=== PATIENT | female | born 1940 | race Caucasian/White ===

== ENCOUNTER 2016-08-06 19:57 | Emergency (ER) | payer MEDICARE, OTHER ==
[~2016-08-06] VITALS: Ht 160 cm; Wt 110.9 kg
[~2016-08-06 19:57] MED LIST: AMLO5TAB2 PO; ASPI-973 PO; CHOL5000 PO; CLOP75TA28 PO; HYDR12.5 PO; LOSA50TA37 PO; NITR0.4T6 SL; OMEG-38 PO; PANT40TA2 PO; SIMV20TA4 PO
[2016-08-06 20:00] VITALS: BP 156/90; PULSE 80; RESP 16; O2SAT 99
--- NOTE | 2016-08-06 21:03 | ED.REPORT ---
HPI-Head Prob / Injury Date of Service Aug 06, 2016 ED Provider: Juanito Dobbins MD 76 year old anticoagulated female with a history of CAD, DM, CHF, and HTN presents to the ER accompanied by her daughter complaining of status post ground level fall. She states that she was stepping off a curb and tripped, striking her head on the ground. Patient denies LOC, vomiting, headache, weakness/numbness/tingling, neck trauma, and any other significant injuries secondary to the fall. Nursing Notes Stated Complaint: FALL, HEAD INJURY Chief Complaint: Head, Face, Neck Trauma Nursing Notes Reviewed: Yes Allergies: Coded Allergies: Adhesives (Verified Allergy, Severe, RASH, 08/06/16) lisinopril (Verified Adverse Reaction, Mild, Cough, 08/06/16) Scheduled Amlodipine (Amlodipine) 5 Mg Tablet 5 MG PO PM Aspirin (Aspirin) 81 Mg Tablet 81 MG PO DAILY Cholecalciferol (Vitamin D3) (Vitamin D3) 5,000 Unit Capsule 5,000 UNIT PO DAILY Clopidogrel (Clopidogrel) 75 Mg Tablet 75 MG PO DAILY Hydrochlorothiazide (Hydrochlorothiazide) 12.5 Mg Capsule 25 MG PO DAILY Losartan Potassium (Losartan Potassium) 50 Mg Tablet 50 MG PO DAILY [place]-3/Dha/Epa/Fish Oil (Fish Oil 1,000 mg Softgel) 1 Each Capsule 1 EACH PO DAILY Pantoprazole DR (Protonix) 40 Mg Tablet.dr 40 MG PO DAILY Simvastatin (Simvastatin) 20 Mg Tablet 20 MG PO HS Scheduled PRN Nitroglycerin SL (Nitroglycerin SL) 0.4 Mg Tab.subl 0.4 MG SL Q5MIN PRN PRN For Chest Pain General Time Seen by Provider: 21:01 Chief Complaint Blunt head trauma Hx Obtained From: Patient Arrived By: Walk-in Onset Occurred: Just prior to arrival Symptom Duration: Since onset Caused by: Fall from (Ground level) Context: Occurred at: Home Location: : Forehead Quality: Painful Severity: Current: Moderate Severity: Maximum: Moderate Associated with: Denies: Loss of consciousness, Nausea, Vomiting, Weakness Pertinent Negative: Pt denies other symptoms Similar Sx Previous: No Risk-Head Prob / Injury )( IC Bleed Risk Strat Age (<1 yr or >60 yrs) Blood thinnersNo EtOH use RF Statements: Risk factors reviewed Nexus C-Spine Criteria No post midline tendernes, Not intoxicated, Normal level or alertness, No focal neuro deficits Kyle Coma Score > Age 5 Eye Opening: Open spontaneously (4) Verbal Response: Oriented (5) Motor Response: Obeys commands (6) [place] Coma Score: 15 Past Medical History Past Medical History Coronary disease, and STEMI September 2011, subsequent stent placed History of mild to moderate aortic stenosis Obstructive sleep apnea Most recent stress test was 3.14 and was negative, followed neg CP admit History of renal cancer, status post right nephrectomy Reports: Congestive heart failure, Coronary artery disease, Diabetes mellitus, GERD, Hyperlipidemia, Hypertension Past Surgical History Cardiac stent September 2011, Right knee arthroplasty Right nephrectomy for renal CA Right shoulder dislocation Partial hysterectomy Family History Noncontributory Smoking History Never Smoker Social History Alcohol Use: Denies alcohol use Drug Use: Denies drug use Other Social History: Local resident Ambulatory Status Independent Review of Systems GI: Denies: Nausea, Vomiting Musculoskeletal: Reports: Extremity pain (Left Hand), Denies: Back pain, Joint pain, Lumbar pain, Neck pain, Thoracic pain Neurologic: Denies: Dizziness, Focal weakness, Headache, Numbness, Slurred speech, Syncope, Weakness Complete sys rev & neg: except as marked. Physical Exam Initial Vital Signs Vital Signs (First) Date Time Temp Pulse Resp B/P Pulse Ox O2 Delivery O2 Flow Rate FiO2 08/06/16 20:00 36.3 80 16 156/90 99 Room Air Initial VS: Reviewed Respiratory: Breath sounds normal, Clear to auscultation, No respiratory distress Cardiovascular: Regular rate & rhythm, Heart sounds normal, Intact distal pulses Abdomen / GI: Soft, Non-tender, No guarding, No rebound, No distention Skin: Warm, Dry, No cyanosis Psychiatric: Mood/affect normal, Behavior normal, Normal thought content General/Constitutional: Awake, Alert, No acute distress, Well appearing, Well developed, Well nourished Head / Eyes: Normocephalic, PERRL, EOMI 5x7cm hematoma overlying forehead with some overlying abrasions. ENT: Airway patent, Gums/dentition NL Neck: Atraumatic, Supple, Full range of motion, No swelling, Non-tender, No midline vertebral tend, No masses, No tracheal deviation Neurologic: Oriented X3, Speech NL, No motor deficits, No sensory deficits, CN II - XII intact, Cerebellar NL Wrist / Hand: Neurologic intact, Vascular intact Ecchymosis involving entire dorsum of left 5th finger. Limited flexion and extension of left 5th finger. Interpretation & Diagnostics Interpretation & Diagnostics: X-Ray Interpretation Xray Interpretation: IMPRESSION: Moderately displaced small avulsion fracture of the dorsal base of the fifth middle phalanx. Dictated by: Jamil Alcantara M.D. on 08/06/2016 at 21:52 Approved by: Jamil Alcantara M.D. on 08/06/2016 at 21:54 Study Performed: PROCEDURE: X-RAY FINGERS, TWO VIEWS Interpretation / Wet Read by: Interpret - Radiologist Xray Interpretation: IMPRESSION: No acute bony injury of the pelvic ring or right hip. Dictated by: Jamil Alcantara M.D. on 08/06/2016 at 21:51 Approved by: Jamil Alcantara M.D. on 08/06/2016 at 21:52 X-Ray Ordered: Pelvis, Hip right Interpretation / Wet Read by: Interpret - Radiologist CT Head Interpretation CONCLUSION: Mild atrophy and periventricular white matter changes consistent with the patient's age. No hemorrhage or other specific acute intracranial abnormality demonstrated. Electronically signed by Gold Henning MD Study: Head CT no contrast Interpretation / Wet Read by: Interpret - Radiologist Procedures Splint Application - Fx Mgt Time: 22:14 Procedure Performed by: ED physician, Plastic Die Maker Apprentice Precise Anatomic Location: Left 5th finger Type of Immobilization: Aluminum-foam Definitive Fracture Care: Splint Post-Procedure / Complications: Cap refill normal, Post splint vascular nl, Post splint neuro nl, Condition improved, Tolerated procedure well, Patient stable Splint Post-Application Eval Extremity Condition: Cap refill < 2 sec, Distal sensation intact, Distal motor Intact, No compartment syndrome Re-Eval/Medical Decision Med Decision/Clinical Course Patient is a 76-year-old female on Plavix who presents to the emergency department after a ground-level fall. She is complaining of left pinky finger pain and forehead hematoma. She is afebrile stable vital signs and normal mentation. Examination as above. Imaging was obtained as below: X-Ray Right Hip/Pelvis IMPRESSION: No acute bony injury of the pelvic ring or right hip. X-Ray Left Fingers IMPRESSION: Moderately displaced small avulsion fracture of the dorsal base of the fifth middle phalanx. Patient was placed in finger splint. She declined pain medications. Complete head to toe examination demonstrated no other associated injuries. She has normal mentation. CT scan of the head demonstrated no acute intracranial process or hemorrhage. She is neurologically intact. I feel she is appropriate for discharge home. Follow up and return precautions were reviewed in detail with the patient as well as her family and they verbalized understanding and agreement with the plan. Source of Hx: Old records Re-Evaluation/Progress : Time of Eval: 22:20 Re-Evaluation/Progress Note: Discussed lab and radiology results and plan to discharge pending head CT results. Patient is amenable to the plan. Counseled Regarding: Diagnosis, Need for follow-up, When/why to return to ED Discharge & Departure Primary Impression: Fall from ground level Additional Impressions: Minor head injury without loss of consciousness Encounter type: initial encounter Qualified Code: S09.90XA - Unspecified injury of head, initial encounter Scalp contusion Encounter type: initial encounter Qualified Code: S00.03XA - Contusion of scalp, initial encounter Finger fracture, left Platelet inhibition due to Plavix Disposition: Home All VS Reviewed: Yes Condition: Stable Additional Instructions: Thank you for seeking care at emergency room. It is difficult for us to make definitive diagnoses in the ED but we believe that you are experiencing a minor head injury, and a fracture of your left pinky finger. Our primary goal today in the ED was to evaluate you for any life-threatening conditions. Your evaluation was reassuring. Use Tylenol as needed for pain. Apply ice packs to help with pain. You should follow-up with your primary doctor next week for re-evaluation. You should return to the ED immediately if you develop severe headache, confusion, loss of consciousness, nausea, vomiting, weakness/numbness/tingling, difficulty walking, or any other concerning signs or symptoms. Thank you for letting us partake in your care today. Referrals: Shlomo Rubio MD (PCP) Scribe Attestation Portions of this note were transcribed by Juan Solares. I, Dr. Dobbins, personally performed the history, physical exam and medical decision-making; I reviewed and confirmed the accuracy of the information in the transcribed note. Signed by: Violeta Stauffer, 08/06/2016 and 23:54 copies to: Shlomo Rubio MD, Beck O MD Aug 06, 2016 21:02 JUAN SOLARES Aug 06, 2016:03
--- NOTE | 2016-08-06 21:52 | DRSVH ---
PROCEDURE: X-RAY PELVIS W/LAT HIP (RT) ([id number]) INDICATIONS: 76 year-old female with right hip pain after ground level fall. TECHNIQUE: AP pelvis with lateral view(s) of the right hip(s). COMPARISON: None. FINDINGS: Bones: No fractures or dislocations. Pelvic ring appears intact. No suspicious bony lesions. Soft tissues: Right inguinal surgical clips are present. The visualized bowel gas pattern is normal. No suspicious soft tissue calcifications. IMPRESSION: No acute bony injury of the pelvic ring or right hip. Dictated by: Jamil Alcantara M.D. on 08/06/2016 at 21:51 Approved by: Jamil Alcantara M.D. on 08/06/2016 at 21:52
--- NOTE | 2016-08-06 21:55 | DRSVH ---
PROCEDURE: X-RAY FINGERS, TWO VIEWS INDICATIONS: 76 year-old female with left fourth and fifth digit pain after ground level fall. TECHNIQUE: AP hand, 2 views of the left fourth and fifth finger(s) acquired. COMPARISON: None. FINDINGS: Bones: There is moderate displaced avulsion fracture involving the dorsal base of the fifth middle ph alanx. There is moderate first carpometacarpal joint degeneration. No suspicious bony lesions. Soft tissues: No suspicious soft tissue calcifications. IMPRESSION: Moderately displaced small avulsion fracture of the dorsal base of the fifth middle phalanx. Dictated by: Jamil Alcantara M.D. on 08/06/2016 at 21:52 Approved by: Jamil Alcantara M.D. on 08/06/2016 at 21:54
[2016-08-06 23:59] VITALS: BP 156/90; PULSE 60; RESP 16; O2SAT 100
--- NOTE | 2016-08-07 08:12 | DRSVH ---
PROCEDURE: CT BRAIN WITHOUT CONTRAST ([id number]) INDICATIONS: trauma/anticoagulated TECHNIQUE: Noncontrast 4.5 mm thick angled axial sections acquired from the foramen magnum to the vertex, with c oronal reformats. COMPARISON: [facility], CT, CT BRAIN WO CON, 03/30/2015, 23:46. [facility], CT, BRAIN W/O CONTRAST, 10/09/2014, 16:31. FINDINGS: Image quality: Excellent. CSF spaces: Basal cisterns are patent. No extra-axial fluid collections. The ventricles are symmet shelia in size and shape. Brain: No intracranial bleeds or masses. There is cerebral volume loss for age, with resultant vent ricular and sulcal prominence. There are periventricular and deep white matter chronic small vessel ischemic changes. There is intracranial internal carotid artery atherosclerosis. Skull and face: Calvarium and visualized facial bones appear intact, without suspicious lesions. Sinuses: Visualized sinuses and mastoids are clear. IMPRESSION: No acute process. Concordant with preliminary interpretation. Dictated by: Amaris Bucio M.D. on 08/07/2016 at 8:05 Approved by: Amaris Bucio M.D. on 08/07/2016 at 8:06
== END 2016-08-07 | disposition home or self-care (01) ==
LOC: SED 19:57
DX: S09.90XA Unspecified injury of head, initial encounter (principal); S00.03XA Contusion of scalp, initial encounter; S62.627A Displaced fracture of middle phalanx of left little finger, initial encounter for closed fracture; D69.1 Qualitative platelet defects; W10.1XXA Fall (on)(from) sidewalk curb, initial encounter; Y93.01 Activity, walking, marching and hiking; Y92.488 Other paved roadways as the place of occurrence of the external cause; Y99.8 Other external cause status; I25.10 Atherosclerotic heart disease of native coronary artery without angina pectoris; I25.2 Old myocardial infarction; I50.9 Heart failure, unspecified; E11.9 Type 2 diabetes mellitus without complications; K21.9 Gastro-esophageal reflux disease without esophagitis; E78.5 Hyperlipidemia, unspecified; I10 Essential (primary) hypertension; Z95.5 Presence of coronary angioplasty implant and graft; Z79.82 Long term (current) use of aspirin; Z79.02 Long term (current) use of antithrombotics/antiplatelets

== ENCOUNTER 2017-01-24 16:22 | Emergency (ER) | payer MEDICARE, OTHER ==
[~2017-01-24] VITALS: Ht 157.5 cm; Wt 107.7 kg
[2017-01-24 16:50] VITALS: BP 155/67; PULSE 71; RESP 22; O2SAT 98
[2017-01-24] MEDS ORDERED: LORazepam 1 mg Tablet PO ONE (17:35)
[2017-01-24 17:45] LABS: BASOPHILS % (AUTO) 0.4 % (0-3); EOSINOPHILS % (AUTO) 2.1 % (0-5); MONOCYTES % (AUTO) 8.6 % (4-12); Mean Corpuscular Hemoglobin 31.2 pg (27.0-35.0); Mean Corpuscular Volume 91.4 fL (81-100); NEUTROPHILS % (AUTO) 55.1 % (40-74); Platelet Count 220 bil/L (150-400)
--- NOTE | 2017-01-24 18:27 | ED.REPORT ---
HPI-Dizziness / Weakness Date of Service Jan 24, 2017 ED Provider: Saurav Gaona MD This is a 76-year-old patient with past medical history of GA and type II diabetes who presents to the ED via EMS for dizziness. This started approximately 3:15 PM, she was sitting at her desk when she suddenly experienced this "floating" sensation and felt like passing out. She was concerned about having a stroke and called EMS. He does note that when the EMS came her wrist blood pressure cuff registered at 180/120. She had associated nausea, shortness of breath with anxiety, and felt warm with a dry mouth. She denies any chest pain, headache, confusion or difficulty with speech. She has not had this type of sensation in the past. He does note that she is being treated for a sinus infection with Augmentin which has helped significantly and has 3 days of treatment remaining. He denies any trauma. 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 Patient does not smoke or drink alcohol. She denies any fevers, chills, abdominal pain. Nursing Notes Stated Complaint: WEAKNESS Chief Complaint: Neuro Symptoms/ Deficits Nursing Notes Reviewed: Yes Allergies: Coded Allergies: Adhesives (Verified Allergy, Severe, RASH, 08/06/16) lisinopril (Verified Adverse Reaction, Mild, Cough, 08/06/16) Scheduled Amlodipine (Amlodipine) 5 Mg Tablet 5 MG PO PM Aspirin (Aspirin) 81 Mg Tablet 81 MG PO DAILY Cholecalciferol (Vitamin D3) (Vitamin D3) 5,000 Unit Capsule 5,000 UNIT PO DAILY Clopidogrel (Clopidogrel) 75 Mg Tablet 75 MG PO DAILY Hydrochlorothiazide (Hydrochlorothiazide) 12.5 Mg Capsule 25 MG PO DAILY Losartan Potassium (Losartan Potassium) 50 Mg Tablet 50 MG PO DAILY [place]-3/Dha/Epa/Fish Oil (Fish Oil 1,000 mg Softgel) 1 Each Capsule 1 EACH PO DAILY Pantoprazole DR (Protonix) 40 Mg Tablet.dr 40 MG PO DAILY Simvastatin (Simvastatin) 20 Mg Tablet 20 MG PO HS Scheduled PRN Nitroglycerin SL (Nitroglycerin SL) 0.4 Mg Tab.subl 0.4 MG SL Q5MIN PRN PRN For Chest Pain General Time Seen by MD: 16:31 Chief Complaint Dizzy Hx Obtained From: Patient Arrived By: Ambulance Past Medical History Patient History: Family history: Cardiovascular disease FATHER MOTHER Stroke MOTHER Past Medical History Coronary disease, and STEMI September 2011, subsequent stent placed History of mild to moderate aortic stenosis Obstructive sleep apnea Most recent stress test was 3.14 and was negative, followed neg CP admit History of renal cancer, status post right nephrectomy Reports: Congestive heart failure, Coronary artery disease, Diabetes mellitus, GERD, Hyperlipidemia, Hypertension Past Surgical History Cardiac stent September 2011, Right knee arthroplasty Right nephrectomy for renal CA Right shoulder dislocation Partial hysterectomy Family History Noncontributory Smoking History Never Smoker Social History Alcohol Use: Denies alcohol use Drug Use: Denies drug use Other Social History: Local resident Ambulatory Status Independent Review of Systems Constitutional: Denies: Chills, Fever, Weakness - generalized Ears / Nose / Throat: Reports: Sinus problem Cardiovascular: Denies: Chest pain GI: Reports: Nausea, Denies: Abdominal pain, Constipation, Diarrhea, Vomiting Neurologic: Reports: Dizziness, Denies: Change LOC, Confusion, Focal weakness, Headache, Seizure, Slurred speech, Syncope, Unable to speak, Vision change, Weakness Psychiatric: Reports: Anxiety, Denies: Confusion Complete sys rev & neg: except as marked. Physical Exam Initial Vital Signs Vital Signs (First) Date Time Temp Pulse Resp B/P Pulse Ox O2 Delivery O2 Flow Rate FiO2 01/24/17 16:50 36.6 71 22 155/67 98 Room Air Neck: Non-tender, Full range of motion Abdomen / GI: Soft, No guarding, No rebound, No distention Back: No CVA tenderness Skin: Warm, No cyanosis Psychiatric: Mood/affect normal, Behavior normal, Normal thought content General/Constitutional: Awake, Alert, Well appearing, Cooperative, Not toxic appearing Respiratory / Chest: Breath sounds NL, No respiratory distress, No rales, No rhonchi, No wheezing Cardiovascular: Regular rhythm, No murmurs Neurologic: Oriented X3, Speech NL, No motor deficits, No sensory deficits, CN II - XII intact, Cerebellar NL, Memory NL NIHSS score 0 Interpretation & Diagnostics Brain MRI without Contrast IMPRESSION: 1. No acute intracranial abnormalities. 2. Cerebral volume loss and chronic microvascular ischemic changes. 3. Pansinusitis. Dictated by: Oniel Keating M.D. on 01/24/2017 at 20:35 Lab Results Interpretation Result Diagram: 01/24/17 1634 01/24/17 1634 Test 01/24/17 16:34 01/24/17 17:37 White Blood Count 7.1th/mm3 (3.8-10.1) Red Blood Count 4.30mil/mm3 (3.90-5.20) Hemoglobin 13.4g/dL (12.0-15.6) Hematocrit 39.3% (35.0-46.0) Mean Corpuscular Volume 91.4fL (81-100) Mean Corpuscular Hemoglobin 31.2pg (27.0-35.0) Mean Corpuscular Hemoglobin Concent 34.1% (32.0-37.0) Red Cell Distribution Width 13.4% (12.3-15.4) Platelet Count 220bil/L (150-400) Neutrophils (%) (Auto) 55.1% (40-74) Lymphocytes (%) (Auto) 33.7% (14-46) Monocytes (%) (Auto) 8.6% (4-12) Eosinophils (%) (Auto) 2.1% (0-5) Basophils (%) (Auto) 0.4% (0-3) Hold Purple Top Tube Received (Received) Hold Blue Top Tube Received (Received) Sodium Level 138mEq/L (134-144) Potassium Level 3.9mEq/L (3.5-5.2) Chloride Level 99mEq/L (97-108) Carbon Dioxide Level 21mmol/L (18-29) Blood Urea Nitrogen 25mg/dL (8-27) Creatinine 1.26mg/dL (0.57-1.00) Estimat Glomerular Filtration Rate 59mL/min (>59) Glucose Level 220mg/dL (60-99) Calcium Level 9.5mg/dL (8.5-10.1) Total Bilirubin 0.5mg/dL (0.0-1.2) Aspartate Amino Transf (AST/SGOT) 14U/L (0-50) Alanine Aminotransferase (ALT/SGPT) 10U/L (0-32) Alkaline Phosphatase 80U/L (25-165) Total Protein 7.4g/dL (6.4-8.4) Albumin 4.2g/dL (3.4-5.0) Hold [place] Top Tube Received (Received) Hold Urine Received (Received) Re-Eval/Medical Decision Med Decision/Clinical Course This is a 76-year-old female with history of GA and type II diabetes who presents for sudden onset of dizziness. Differential includes stroke, Mnire' s disease, BPPV, arrhythmia. Her NIHSS score was 0 upon presentation. The etiology of her dizziness is somewhat unclear as there are a lot of vague symptoms that do not point in any one direction. On exam cranial nerves were intact, her symptoms were reproducible with head movements. CBC and CMP were unremarkable except for glucose of 220. Her EKG showed right bundle branch block similar to prior EKG. MR brain without contrast was done to rule out stroke, which did not show any acute changes. There does not seem to be a an emergent cause of her dizziness at this time and her symptoms improved while in the ED. Counseled Regarding: Need for follow-up (Follow up with Dr. Rubio within 1 week) Patient Discharge & Departure Impression: Primary Impression: Dizziness Disposition: Home Discharge Condition All VS Reviewed: Yes Condition: Stable Patient Instructions: Dizziness (ED) Additional Instructions: You should follow up with your primary care doctor within 1 week to have this further worked up if symptoms persist. There is no emergent cause of this dizziness as MRI does not show any signs of stroke. Referrals: Shlomo Rubio MD (PCP) Attending Statement The patient was seen and examined together with Dr. Solorzano on 01/24/17 and I agree with the history, exam and plan as outlined in the note above. Shlomo Rubio MD, Malik A DO Jan 24, 2017 18:27 Saurav Gaona MD Jan 24, 2017 23:23
--- NOTE | 2017-01-24 20:40 | DRSVH ---
PROCEDURE: MRI BRAIN WITHOUT CONTRAST ([id number]) INDICATIONS: dizziness, rule out stroke TECHNIQUE: Non-contrast axial T1 spin echo, axial T2 fast spin echo, sagittal and axial FLAIR, coronal T2 fast s pin echo, axial gradient echo, axial diffusion and ADC through the brain. COMPARISON: [facility], CT, CT BRAIN WO CON, 08/06/2016, 22:32. FINDINGS: Image quality: Excellent. CSF spaces: Ventricles appear symmetric in size and shape. Basal cisterns are patent. No extra-axi al fluid collections. Brain: No intracranial bleeds or mass effects. There is mild cerebral volume loss for age. There a re mild periventricular and deep white matter chronic small vessel ischemic changes. Brainstem appea rs normal. Diffusion-weighted images show no acute ischemic insults. No chronic ischemic insults. Normal intravascular flow voids are present. Skull and face: Calvarial bone marrow is normal in signal. Orbits are normal. Sinuses: Severe maxillary sinus mucosal thickening bilaterally. Mild mucosal thickening is also noted in frontal and ethmoid sinuses bilaterally. There are small air-fluid levels in sphenoid sinuses. Ma stoids are clear. IMPRESSION: 1. No acute intracranial abnormalities. 2. Cerebral volume loss and chronic microvascular ischemic changes. 3. Pansinusitis. Dictated by: Oniel Keating M.D. on 01/24/2017 at 20:35 Approved by: Oniel Keating M.D. on 01/24/2017 at 20:38
[2017-01-24 21:18] VITALS: BP 148/66; PULSE 71; RESP 16; O2SAT 95
[2017-01-24 21:40] VITALS: BP 156/78; PULSE 71; RESP 18; O2SAT 98
== END 2017-01-24 21:42 | disposition home or self-care (01) ==
LOC: EDBD 16:22 → SED 16:22
DX: R42 Dizziness and giddiness (principal); R06.02 Shortness of breath; F41.9 Anxiety disorder, unspecified; R11.0 Nausea; I11.0 Hypertensive heart disease with heart failure; I50.9 Heart failure, unspecified; I25.10 Atherosclerotic heart disease of native coronary artery without angina pectoris; E11.59 Type 2 diabetes mellitus with other circulatory complications; I25.2 Old myocardial infarction; K21.9 Gastro-esophageal reflux disease without esophagitis; E78.5 Hyperlipidemia, unspecified; Z95.5 Presence of coronary angioplasty implant and graft; Z79.82 Long term (current) use of aspirin; Z88.8 Allergy status to other drugs, medicaments and biological substances; Z91.048 Other nonmedicinal substance allergy status
CPT/HCPCS: 36415; 70551; 80053; 85025; 93005; 96374; 99285; J2060